=== PATIENT | male | born 1990 | race Hispanic/Latino ===

== ENCOUNTER 2024-03-20 05:14 | Emergency (ER) | payer OTHER ==
[~2024-03-20] VITALS: Ht 170.2 cm; Wt 79.4 kg
[2024-03-20] MEDS: ONDANSETRON HCL INJ 2MG/ML 2ML 2 MG/ML VIAL IV STA (06:01)
[2024-03-20] MEDS: SODIUM CHLORIDE 0.9% 1000ML 1,000 ML IV STA (06:01)
[2024-03-20] MEDS: KETOROLAC TROMETHAMINE 30 MG/ML VIAL IV STA (06:01)
[2024-03-20 06:09] LABS: ALBUMIN 4.2 g/dL (3.5-5.0); BASOPHILS # (AUTO) 0.1 (0.0-0.1); BASOPHILS % 0.6 % (0.0-1.0); BILIRUBIN,TOTAL 0.5 mg/dL (0.2-1.2); CALCIUM 9.4 mg/dL (8.4-10.2); CREATININE, SERUM 0.96 mg/dL (0.72-1.25); EOSINOPHILS # (AUTO) 0.1 (0.0-0.4); HEMATOCRIT 51.4 % (38.2-49.6); HEMOGLOBIN 17.1 g/dL (14.0-18.0); LYMPHOCYTES # (AUTO) 2.7 (1.0-3.2); LYMPHOCYTES % 25.7 % (18.0-39.1); MEAN CORPUSCULAR HGB CONC 33.3 g/dL (31-35); MEAN CORPUSCULAR VOLUME 87.1 fL (81-99); MONOCYTES # (AUTO) 0.8 (0.2-0.8); MONOCYTES % 7.9 % (4.4-11.3); NEUTROPHILS # (AUTO) 6.7 (2.1-6.9); NEUTROPHILS % 64.5 % (38.7-80.0); PLATELET COUNT 217 x10e3/uL (140-360); RED CELL DISTRIBUTION WIDTH 12.8 % (11.7-14.4); TOTAL PROTEIN 8.3 g/dL (6.5-8.1); WHITE BLOOD COUNT 10.41 x10e3/uL (4.8-10.8)
[2024-03-20 06:34] LABS: CLARITY,URINE CLEAR (CLEAR); COLOR,URINE YELLOW (YELLOW); LEUKOCYTE ESTERASE ,URINE NEGATIVE (NEGATIVE); NITRITE,URINE NEGATIVE (NEGATIVE); PH,URINE 6 (5 - 7); PROTEIN,URINE DIPSTICK NEGATIVE (NEGATIVE)
[2024-03-20 06:35] LABS: BILIRUBIN,URINE NEGATIVE (NEGATIVE); GLUCOSE, URINE NEGATIVE (NEGATIVE); KETONES,URINE NEGATIVE (NEGATIVE); URINE UROBILINOGEN 0.2 mg/dL (0.2 - 1)
[2024-03-20 06:41] LABS: OPIATES SCREEN,URINE NEGATIVE (NEGATIVE); PHENCYCLIDINE SCREEN,URINE NEGATIVE (NEGATIVE)
[2024-03-20] MEDS ORDERED: IOPAMIDOL 370 MG/ML 100 ML INFUS..BTL INJ ONE (06:41)
[2024-03-20 06:42] LABS: AMPHETAMINES SCREEN,URINE POSITIVE (NEGATIVE); BENZODIAZEPINES SCREEN,URINE NEGATIVE (NEGATIVE); CANNABINOIDS SCREEN,URINE NEGATIVE (NEGATIVE); METHADONE SCREEN, URINE NEGATIVE (NEGATIVE)
[2024-03-20 07:03] LABS: WBC,URINE (MAN) 0-5 /HPF (0-5)
[2024-03-20 07:04] LABS: BACTERIA,URINE FEW /HPF; EPITHELIAL CELLS,URINE FEW /LPF
[2024-03-20 09:46] VITALS: TEMP 97.9
[2024-03-20 10:00] VITALS: PULSE 79; RESP 18; O2SAT 100
== END 2024-03-20 10:30 | disposition home or self-care (01) ==
LOC: ER 05:18
DX: R10.30 Lower abdominal pain, unspecified (principal); I86.1 Scrotal varices; K57.30 Diverticulosis of large intestine without perforation or abscess without bleeding; K40.90 Unilateral inguinal hernia, without obstruction or gangrene, not specified as recurrent; K76.0 Fatty (change of) liver, not elsewhere classified
CPT/HCPCS: 36415; 74177; 76870; 80053; 80307; 81001; 83690; 85025; 93976; 99284; J1885; J2405; J7030; Q9967

== ENCOUNTER 2024-12-31 10:20 | Emergency (ER) | payer OTHER ==
[~2024-12-31] VITALS: Ht 170.2 cm; Wt 79.4 kg
[2024-12-31 10:23] VITALS: PULSE 88; RESP 18; TEMP 98.1; O2SAT 100
[2024-12-31] MEDS ORDERED: DICYCLOMINE HCL20 MG PO (11:01)
== END 2024-12-31 11:17 | disposition home or self-care (01) ==
LOC: ER 10:37
DX: R10.11 Right upper quadrant pain (principal); R11.0 Nausea; F41.9 Anxiety disorder, unspecified; F32.A Depression, unspecified
CPT/HCPCS: 99282